=== PATIENT | male | born 1990 | race Caucasian/White ===

== ENCOUNTER 2018-01-28 13:56 | Emergency (ER) | payer MEDICAID ==
[~2018-01-28] VITALS: Ht 167.6 cm; Wt 87.1 kg
[2018-01-28 14:10] VITALS: Ht 167.6 cm; Wt 87.1 kg
[2018-01-28 16:20] VITALS: BP 145/66
== END 2018-01-28 16:20 | disposition home or self-care (01) ==
LOC: ED 13:56
DX: S61.012A Laceration without foreign body of left thumb without damage to nail, initial encounter (principal); F31.9 Bipolar disorder, unspecified; F17.210 Nicotine dependence, cigarettes, uncomplicated; Z88.6 Allergy status to analgesic agent; W26.8XXA Contact with other sharp object(s), not elsewhere classified, initial encounter; Y93.89 Activity, other specified; Y92.89 Other specified places as the place of occurrence of the external cause; Y99.8 Other external cause status
CPT/HCPCS: J2001

== ENCOUNTER 2018-08-17 03:17 | Emergency (ER) | payer MEDICAID ==
[~2018-08-17] VITALS: Ht 167.6 cm; Wt 78.5 kg
[2018-08-17 03:33] VITALS: Ht 167.6 cm; Wt 78.5 kg
[2018-08-17 04:16] VITALS: BP 136/88
== END 2018-08-17 04:45 | disposition home or self-care (01) ==
LOC: ED 03:17
DX: S62.634A Displaced fracture of distal phalanx of right ring finger, initial encounter for closed fracture (principal); F41.9 Anxiety disorder, unspecified; Z88.8 Allergy status to other drugs, medicaments and biological substances; W22.8XXA Striking against or struck by other objects, initial encounter; Y93.89 Activity, other specified; Y92.89 Other specified places as the place of occurrence of the external cause; Y99.8 Other external cause status
CPT/HCPCS: Q0092

== ENCOUNTER 2018-09-16 06:24 | Emergency (ER) | payer MEDICAID ==
[~2018-09-16] VITALS: Ht 167.6 cm; Wt 82.8 kg
[2018-09-16 06:28] VITALS: Ht 167.6 cm; Wt 82.8 kg
[2018-09-16 06:55] VITALS: BP 128/77
== END 2018-09-16 06:55 | disposition home or self-care (01) ==
LOC: ED 06:24
DX: B35.3 Tinea pedis (principal); F31.9 Bipolar disorder, unspecified; Z88.6 Allergy status to analgesic agent

== ENCOUNTER 2019-04-22 16:04 | Emergency (ER) | payer MEDICAID ==
[~2019-04-22] VITALS: Ht 167.6 cm; Wt 84.4 kg
[2019-04-22 16:16] VITALS: Ht 167.6 cm; Wt 84.4 kg
[2019-04-22 17:35] VITALS: BP 130/65
== END 2019-04-22 17:35 | disposition home or self-care (01) ==
LOC: ED 16:04
DX: S05.02XA Injury of conjunctiva and corneal abrasion without foreign body, left eye, initial encounter (principal); T15.92XA Foreign body on external eye, part unspecified, left eye, initial encounter; W45.8XXA Other foreign body or object entering through skin, initial encounter; Y93.89 Activity, other specified; Y92.89 Other specified places as the place of occurrence of the external cause; Y99.8 Other external cause status
CPT/HCPCS: 90715; J1885